=== PATIENT | male | born 2000 | race Two or more races ===

== ENCOUNTER 2024-01-05 08:50 | Emergency (ER) | payer OTHER ==
[~2024-01-05] VITALS: Ht 170.2 cm; Wt 72.6 kg
[2024-01-05] MEDS ORDERED: CEFTRIAXONE SODIUM 1,000 MG VIAL IM STA (10:02)
[2024-01-05] MEDS ORDERED: ZITHROMAX500 MG PO (11:26)
== END 2024-01-05 11:29 | disposition home or self-care (01) ==
LOC: ER 08:51
DX: R53.81 Other malaise (principal); J03.90 Acute tonsillitis, unspecified
CPT/HCPCS: 96372; 99282; J0696